=== PATIENT | male | born 1970 | race African-American/Black ===

== ENCOUNTER 2018-02-10 11:10 | Inpatient (IN) ==
[2018-02-10] MEDS ORDERED: LORazepam 2 MG/1 ML VIAL ONE (11:54)
[2018-02-10] MEDS ORDERED: LORazepam 2 MG/1 ML VIAL IV STA (11:58)
[2018-02-10] MEDS ORDERED: SODIUM CHLORIDE 0.9% 1,000 ML IV STA (12:25)
[2018-02-10] MEDS ORDERED: MIDAZOLAM 2 MG/2 ML VIAL ONE (12:35)
[2018-02-10] MEDS ORDERED: MIDAZOLAM 2 MG/2 ML VIAL IM STA (12:45)
[2018-02-10 13:14] LABS: Basophils % 0.5 % (0.0-0.8); Eosinophils # 0.1 10*3/uL (0.0-0.87); Hemoglobin 13.7 GM/DL (14.0-18.0); Immature Granulocytes % 0.3 %; Immature Granulocytes Absolute 0.02 #; Lymphocytes # 1.8 10*3/uL (1.4-4.0); Lymphocytes % 31.4 % (21.2-54.2); Mean Corpuscular HGB Conc 33.4 GM/DL (32-36); Mean Corpuscular Hemoglobin 33 PG (27-34); Mean Corpuscular Volume 97.2 FL (87-102); Monocytes # 0.8 10*3/uL (0.11-0.8); Monocytes % 13.3 % (1.7-12.7); Neutrophils # 3.1 10*3/uL (1.4-7.4); Neutrophils % 53.5 % (38.7-73.9); Platelet Count 49 T/CUMM (130-400); Red Blood Count 4.22 MC/CUMM (3.8-5.5); Red Cell Distribution Width 14.5 % (9.3-17.3); White Blood Count 5.7 T/CUMM (4-12)
[2018-02-10] MEDS ORDERED: ETOMIDATE 20 MG/10 ML VIAL IV STA (13:20)
[2018-02-10] MEDS ORDERED: SUCCINYLCHOLINE 200 MG/10 ML VIAL IV STA (13:20)
[2018-02-10] MEDS ORDERED: PROPOFOL 1,000 MG/100 ML BOTTLE IV ONE (13:24)
[2018-02-10] MEDS ORDERED: ETOMIDATE 20 MG/10 ML VIAL IV ONE (13:32)
[2018-02-10] MEDS ORDERED: ROCURONIUM 100 MG/10 ML VIAL IV ONE (13:32)
[2018-02-10 13:34] LABS: Albumin 3.6 G/DL (3.4-5.0); Bilirubin,Total 0.7 MG/DL (0.2-1.0); Calcium 8.5 MG/DL (8.5-10.1); Osmolality,Calculated 279.5 MOS/KG (273-304); Potassium 3.4 MMOL/L (3.5-5.1); Total Protein 7.3 G/DL (6.4-8.3)
[2018-02-10] MEDS ORDERED: VECURONIUM 10 MG VIAL IV ONE (13:48)
[2018-02-10] MEDS ORDERED: VECURONIUM 10 MG VIAL IV STA (13:55)
[2018-02-10 14:14] LABS: Apearance,Urine CLEAR (Clear); Bilirubin,Urine Negative (Negative); Blood, Urine Small mg/dL (Negative); Glucose,Urine (UA) >=500 mg/dL (Negative); Hyaline Casts,Urine 4 /LPF (0-3); Ketones,Urine 5 mg/dL (Negative); Mucus,Urine Occasional /LPF (Occasional); Nitrite,Urine Negative (Negative); Protein,Urine 100 MG/DL; RBC,Urine 3 /HPF (0-4); Urine Color Yellow (Yellow); Urine Specific Gravity 1.021 (1.001-1.035); WBC,Urine 1 /HPF (0-6)
[2018-02-10 14:20] LABS: Barbiturates Screen,Urine Negative (Negative); Benzodiazepines Screen,Urine Positive (Negative); Cannabinoid Screen,Urine Negative (Negative); Opiate Screen,Urine Negative (Negative); Phencyclidine Screen,Urine Negative (Negative)
[2018-02-10 14:34] LABS: ABG Base Excess 1.2 MMOL/L (-2.5-2.5); ABG HCO3 25.5 MMOL/L (20-26); ABG Oxygen Saturation 98.8 % (95-100); ABG PCO2 46.3 MM HG (35-48); ABG PH 7.373 (7.35-7.45); ABG TCO2 23.7 MMOL/L (23-27)
[2018-02-10] MEDS ORDERED: ALBUTEROL 2.5 MG/3 ML NEB RESP TX PRN (14:55)
[2018-02-10] MEDS ORDERED: ONDANSETRON 4 MG/2 ML VIAL IV PRN (14:55)
[2018-02-10] MEDS ORDERED: PANTOPRAZOLE 40 MG VIAL IV SCH (15:00)
[2018-02-10] MEDS ORDERED: SODIUM CHLORIDE 0.9% 1,000 ML IV SCH (15:00)
[2018-02-10] MEDS ORDERED: GLUCAGON 1 MG VIAL IM PRN (15:05)
[2018-02-10] MEDS ORDERED: DEXTROSE 50% 25 GM/50 ML VIAL IV PRN (15:05)
[2018-02-10] MEDS ORDERED: THIAMINE INJ 100 MG, FOLIC ACID INJ 1 MG, MULTIVITAMIN INJ 10 ML in SODIUM CHLORIDE 0.9... IV SCH (16:00)
[2018-02-10] MEDS: PROPOFOL 1,000 MG/100 ML BOTTLE IV SCH ×3 (16:14→21:49)
[2018-02-10] MEDS: ENOXAPARIN 40 MG/0.4 ML SYRINGE SUBCUT SCH (16:19)
[2018-02-10] MEDS ORDERED: MAGNESIUM SULF RIDER 4 GM in PREMIX 1 EACH IV PRN (16:26)
[2018-02-10] MEDS: INSULIN LISPRO 100 UNIT/ML SUBCUT SCH ×2 (17:00→21:48)
[2018-02-10] MEDS: SODIUM CHLORIDE 0.9% 1,000 ML IV SCH (17:39)
[2018-02-10] MEDS: chlordiazePOXIDE 25 MG CAPSULE PER TUBE SCH (21:48)
[2018-02-10] MEDS: BACLOFEN 10 MG TABLET PER TUBE SCH (21:48)
[2018-02-10] MEDS: MAGNESIUM SULF RIDER 2 GM in PREMIX 1 EACH IV PRN (21:50)
[2018-02-10] MEDS: POTASSIUM CHLORIDE RIDER 10 MEQ in PREMIX 1 EACH IV PRN (22:12)
[2018-02-11] MEDS: POTASSIUM CHLORIDE RIDER 10 MEQ in PREMIX 1 EACH IV PRN ×4 (00:15→09:25)
[2018-02-11] MEDS: PROPOFOL 1,000 MG/100 ML BOTTLE IV SCH ×8 (00:15→22:22)
[2018-02-11 03:48] LABS: ABG Base Excess 1.3 MMOL/L (-2.5-2.5); ABG HCO3 25.6 MMOL/L (20-26); ABG PCO2 43.1 MM HG (35-48); ABG PH 7.396 (7.35-7.45); ABG TCO2 23.1 MMOL/L (23-27); Pt O2 Delivery Device Ventilator
[2018-02-11 05:28] LABS: Basophils % 0.4 % (0.0-0.8); Eosinophils # 0.1 10*3/uL (0.0-0.87); Eosinophils % 1.2 % (0.00-10.9); Hematocrit 38.3 VOL% (42.0-52.0); Hemoglobin 12.8 GM/DL (14.0-18.0); Immature Granulocytes % 0.6 %; Immature Granulocytes Absolute 0.04 #; Lymphocytes % 14.3 % (21.2-54.2); Mean Corpuscular HGB Conc 33.4 GM/DL (32-36); Mean Corpuscular Hemoglobin 33 PG (27-34); Mean Corpuscular Volume 97.2 FL (87-102); Mean Platelet Volume 13.4 FL (9.6-12.0); Monocytes # 0.6 10*3/uL (0.11-0.8); Monocytes % 8.5 % (1.7-12.7); Neutrophils # 5.4 10*3/uL (1.4-7.4); Platelet Count 40 T/CUMM (130-400); Red Blood Count 3.94 MC/CUMM (3.8-5.5); Red Cell Distribution Width 14.8 % (9.3-17.3); White Blood Count 7.3 T/CUMM (4-12)
[2018-02-11 05:55] LABS: Albumin 3.2 G/DL (3.4-5.0); Bilirubin,Total 1.1 MG/DL (0.2-1.0); Calcium 7.7 MG/DL (8.5-10.1); Folate > 24.0 NG/ML (5.4-24.0); Potassium 3.2 MMOL/L (3.5-5.1); Thyroid Stimulating Hormone 0.498 uIU/ml (0.358-3.74); Total Protein 6.6 G/DL (6.4-8.3); Vitamin B12 999 PG/ML (211-911)
[2018-02-11 05:58] LABS: Band Neutrophils 2 % (0-10); Hypochromasia 1+; Lymphocytes 16 % (20-55); Platelet Estimate Decreased; Segmented Neutrophils 75 % (50-85); Total Cells Counted 100
[2018-02-11] MEDS: SODIUM CHLORIDE 0.9% 1,000 ML IV SCH ×3 (06:34→21:25)
[2018-02-11] MEDS: INSULIN LISPRO 100 UNIT/ML SUBCUT SCH ×3 (07:49→16:54)
[2018-02-11] MEDS: BACLOFEN 10 MG TABLET PER TUBE SCH ×3 (09:25→21:03)
[2018-02-11] MEDS: chlordiazePOXIDE 25 MG CAPSULE PER TUBE SCH ×4 (09:25→21:03)
[2018-02-11] MEDS: PANTOPRAZOLE 40 MG VIAL IV SCH ×2 (09:26→21:04)
[2018-02-11] MEDS: POTASSIUM CHLORIDE 20 MEQ/15 ML UDCUP PER TUBE SCH ×4 (10:40→22:09)
[2018-02-11] MEDS: ENOXAPARIN 40 MG/0.4 ML SYRINGE SUBCUT SCH (16:13)
[2018-02-12] MEDS: INSULIN LISPRO 100 UNIT/ML SUBCUT SCH ×5 (00:15→23:47)
[2018-02-12] MEDS: LORazepam 2 MG/1 ML VIAL IV PRN ×3 (01:16→23:42)
[2018-02-12] MEDS: PROPOFOL 1,000 MG/100 ML BOTTLE IV SCH ×9 (01:19→21:50)
[2018-02-12 04:21] LABS: ABG HCO3 22.8 MMOL/L (20-26); ABG Oxygen Saturation 97.9 % (95-100); ABG PCO2 40.3 MM HG (35-48); ABG PH 7.368 (7.35-7.45); ABG TCO2 20.4 MMOL/L (23-27); Allen Test Positive; Pt O2 Delivery Device Ventilator
[2018-02-12] MEDS: SODIUM CHLORIDE 0.9% 1,000 ML IV SCH ×2 (05:35→13:57)
[2018-02-12 06:29] LABS: Basophils % 0.3 % (0.0-0.8); Eosinophils # 0.1 10*3/uL (0.0-0.87); Eosinophils % 1.6 % (0.00-10.9); Hematocrit 39.2 VOL% (42.0-52.0); Hemoglobin 12.6 GM/DL (14.0-18.0); Immature Granulocytes % 0.3 %; Immature Granulocytes Absolute 0.02 #; Lymphocytes # 1.1 10*3/uL (1.4-4.0); Lymphocytes % 17.1 % (21.2-54.2); Mean Corpuscular HGB Conc 32.1 GM/DL (32-36); Mean Corpuscular Hemoglobin 33 PG (27-34); Mean Platelet Volume 13.6 FL (9.6-12.0); Monocytes # 0.6 10*3/uL (0.11-0.8); Monocytes % 8.9 % (1.7-12.7); Neutrophils # 4.5 10*3/uL (1.4-7.4); Neutrophils % 71.8 % (38.7-73.9); Platelet Count 40 T/CUMM (130-400); Red Blood Count 3.88 MC/CUMM (3.8-5.5); White Blood Count 6.3 T/CUMM (4-12)
[2018-02-12 06:39] LABS: PT Patient Result 10.6 SECS
[2018-02-12 06:41] LABS: Osmolality,Calculated 287.6 MOS/KG (273-304); Potassium 3.5 MMOL/L (3.5-5.1)
[2018-02-12 07:14] LABS: Band Neutrophils 1 % (0-10); Eosinophils 3 % (0-10); Lymphocytes 28 % (20-55); Macrocytosis 3+; Platelet Estimate Decreased; Segmented Neutrophils 66 % (50-85); Total Cells Counted 100
[2018-02-12] MEDS: BACLOFEN 10 MG TABLET PER TUBE SCH ×3 (10:02→21:32)
[2018-02-12] MEDS: PANTOPRAZOLE 40 MG VIAL IV SCH (10:02)
[2018-02-12] MEDS: chlordiazePOXIDE 25 MG CAPSULE PER TUBE SCH ×4 (10:02→21:32)
[2018-02-12] MEDS: POTASSIUM CHLORIDE RIDER 10 MEQ in PREMIX 1 EACH IV PRN ×3 (10:53→13:01)
[2018-02-13] MEDS: PROPOFOL 1,000 MG/100 ML BOTTLE IV SCH ×9 (00:26→21:25)
[2018-02-13 04:40] LABS: ABG Base Excess -1.6 MMOL/L (-2.5-2.5); ABG Oxygen Saturation 97.8 % (95-100); ABG PCO2 38.3 MM HG (35-48); ABG PH 7.387 (7.35-7.45); ABG PO2 99.9 MM HG (80-95)
[2018-02-13] MEDS: INSULIN LISPRO 100 UNIT/ML SUBCUT SCH ×3 (05:49→17:19)
[2018-02-13] MEDS: SODIUM CHLORIDE 0.9% 1,000 ML IV SCH ×2 (06:14→23:00)
[2018-02-13 06:28] LABS: Basophils % 0.3 % (0.0-0.8); Eosinophils % 0.2 % (0.00-10.9); Hematocrit 42.8 VOL% (42.0-52.0); Hemoglobin 13.8 GM/DL (14.0-18.0); Immature Granulocytes % 0.6 %; Immature Granulocytes Absolute 0.07 #; Lymphocytes # 1.4 10*3/uL (1.4-4.0); Lymphocytes % 12.7 % (21.2-54.2); Mean Corpuscular HGB Conc 32.2 GM/DL (32-36); Mean Corpuscular Hemoglobin 33 PG (27-34); Mean Corpuscular Volume 101.7 FL (87-102); Mean Platelet Volume 13.5 FL (9.6-12.0); Monocytes # 1.6 10*3/uL (0.11-0.8); Monocytes % 14.9 % (1.7-12.7); Neutrophils # 7.7 10*3/uL (1.4-7.4); Neutrophils % 71.3 % (38.7-73.9); Platelet Count 54 T/CUMM (130-400); Red Blood Count 4.21 MC/CUMM (3.8-5.5); Red Cell Distribution Width 14.6 % (9.3-17.3); White Blood Count 10.8 T/CUMM (4-12)
[2018-02-13 07:14] LABS: Platelet Estimate Decreased
[2018-02-13 07:15] LABS: Anisocytosis Slight; Macrocytosis 2+
[2018-02-13 07:16] LABS: Giant Platelets Few
[2018-02-13 08:23] LABS: Calcium 8.3 MG/DL (8.5-10.1); Potassium 4.2 MMOL/L (3.5-5.1)
[2018-02-13] MEDS: PANTOPRAZOLE 40 MG VIAL IV SCH (08:35)
[2018-02-13] MEDS: FONDAPARINUX 2.5 MG/0.5 ML SYRINGE SUBCUT SCH (08:35)
[2018-02-13] MEDS: BACLOFEN 10 MG TABLET PER TUBE SCH ×3 (08:35→20:21)
[2018-02-13] MEDS: chlordiazePOXIDE 25 MG CAPSULE PER TUBE SCH ×4 (08:35→20:21)
[2018-02-13] MEDS: LORazepam 2 MG/1 ML VIAL IV PRN (20:30)
[2018-02-14] MEDS: INSULIN LISPRO 100 UNIT/ML SUBCUT SCH ×4 (00:07→17:41)
[2018-02-14] MEDS: PROPOFOL 1,000 MG/100 ML BOTTLE IV SCH ×5 (04:09→19:49)
[2018-02-14 04:41] LABS: ABG Base Excess 0.9 MMOL/L (-2.5-2.5); ABG HCO3 25.4 MMOL/L (20-26); ABG Oxygen Saturation 96.2 % (95-100); ABG PCO2 40.3 MM HG (35-48); ABG PH 7.418 (7.35-7.45); ABG PO2 86.7 MM HG (80-95); ABG TCO2 26.7 MMOL/L (23-27); Pt O2 Delivery Device Ventilator
[2018-02-14 05:11] LABS: Basophils % 0.6 % (0.0-0.8); Eosinophils % 0.7 % (0.00-10.9); Hematocrit 38.6 VOL% (42.0-52.0); Hemoglobin 12.6 GM/DL (14.0-18.0); Immature Granulocytes % 0.2 %; Immature Granulocytes Absolute 0.01 #; Lymphocytes # 1.1 10*3/uL (1.4-4.0); Lymphocytes % 20.1 % (21.2-54.2); Mean Corpuscular HGB Conc 32.6 GM/DL (32-36); Mean Corpuscular Hemoglobin 33 PG (27-34); Mean Corpuscular Volume 99.5 FL (87-102); Mean Platelet Volume 13.3 FL (9.6-12.0); Monocytes # 1.3 10*3/uL (0.11-0.8); Monocytes % 24.6 % (1.7-12.7); Neutrophils # 2.9 10*3/uL (1.4-7.4); Neutrophils % 53.8 % (38.7-73.9); Platelet Count 69 T/CUMM (130-400); Red Blood Count 3.88 MC/CUMM (3.8-5.5); Red Cell Distribution Width 14.3 % (9.3-17.3); White Blood Count 5.4 T/CUMM (4-12)
[2018-02-14 05:23] LABS: Calcium 7.9 MG/DL (8.5-10.1); Potassium 3.8 MMOL/L (3.5-5.1)
[2018-02-14 05:56] LABS: Band Neutrophils 8 % (0-10); Eosinophils 2 % (0-10); Hypochromasia 1+; Lymphocytes 22 % (20-55); Platelet Estimate Decreased; Segmented Neutrophils 40 % (50-85); Total Cells Counted 100
[2018-02-14 05:57] LABS: Macrocytosis Slight
[2018-02-14] MEDS: POTASSIUM CHLORIDE RIDER 10 MEQ in PREMIX 1 EACH IV PRN ×2 (06:07→07:11)
[2018-02-14] MEDS: BACLOFEN 10 MG TABLET PER TUBE SCH ×3 (08:58→21:37)
[2018-02-14] MEDS: FONDAPARINUX 2.5 MG/0.5 ML SYRINGE SUBCUT SCH (08:58)
[2018-02-14] MEDS: chlordiazePOXIDE 25 MG CAPSULE PER TUBE SCH ×4 (08:58→21:37)
[2018-02-14] MEDS: PANTOPRAZOLE 40 MG VIAL IV SCH (08:58)
[2018-02-14] MEDS ORDERED: cefTRIAXone 1,000 MG VIAL IM SCH (09:30)
[2018-02-14] MEDS: cefTRIAXone 1,000 MG in SYRINGE 1 EACH IV SCH (10:29)
[2018-02-14] MEDS: SODIUM CHLORIDE 0.9% 1,000 ML IV SCH (16:03)
[2018-02-15] MEDS: INSULIN LISPRO 100 UNIT/ML SUBCUT SCH ×5 (00:27→23:50)
[2018-02-15] MEDS: PROPOFOL 1,000 MG/100 ML BOTTLE IV SCH ×5 (00:35→20:40)
[2018-02-15 03:49] LABS: ABG Base Excess 2.2 MMOL/L (-2.5-2.5); ABG HCO3 26.4 MMOL/L (20-26); ABG Oxygen Saturation 98.9 % (95-100); ABG PCO2 40.7 MM HG (35-48); ABG PH 7.426 (7.35-7.45); ABG TCO2 23.5 MMOL/L (23-27); Pt O2 Delivery Device Ventilator
[2018-02-15 05:58] LABS: Basophils % 0.5 % (0.0-0.8); Eosinophils # 0.1 10*3/uL (0.0-0.87); Eosinophils % 2.7 % (0.00-10.9); Hematocrit 37.9 VOL% (42.0-52.0); Hemoglobin 12.1 GM/DL (14.0-18.0); Immature Granulocytes % 0.9 %; Immature Granulocytes Absolute 0.04 #; Lymphocytes # 1.1 10*3/uL (1.4-4.0); Lymphocytes % 23.9 % (21.2-54.2); Mean Corpuscular HGB Conc 31.9 GM/DL (32-36); Mean Corpuscular Hemoglobin 32 PG (27-34); Mean Corpuscular Volume 100.5 FL (87-102); Monocytes # 1.2 10*3/uL (0.11-0.8); Platelet Count 95 T/CUMM (130-400); Red Blood Count 3.77 MC/CUMM (3.8-5.5); Red Cell Distribution Width 14.1 % (9.3-17.3); White Blood Count 4.4 T/CUMM (4-12)
[2018-02-15 06:20] LABS: Band Neutrophils 4 % (0-10); Eosinophils 2 % (0-10); Hypochromasia 1+; Lymphocytes 33 % (20-55); Platelet Estimate Decreased; Segmented Neutrophils 40 % (50-85); Total Cells Counted 100
[2018-02-15 06:21] LABS: Macrocytosis Slight
[2018-02-15 06:29] LABS: Calcium 8.4 MG/DL (8.5-10.1); Osmolality,Calculated 289.8 MOS/KG (273-304); Potassium 3.6 MMOL/L (3.5-5.1)
[2018-02-15] MEDS: POTASSIUM CHLORIDE RIDER 10 MEQ in PREMIX 1 EACH IV PRN ×2 (06:41→07:42)
[2018-02-15] MEDS ORDERED: MAGNESIUM SULF RIDER 2 GM in PREMIX 1 EACH IV ONE (08:53)
[2018-02-15] MEDS: chlordiazePOXIDE 25 MG CAPSULE PER TUBE SCH ×3 (09:41→17:15)
[2018-02-15] MEDS: PANTOPRAZOLE 40 MG VIAL IV SCH (09:41)
[2018-02-15] MEDS: cefTRIAXone 1,000 MG in SYRINGE 1 EACH IV SCH (09:41)
[2018-02-15] MEDS: BACLOFEN 10 MG TABLET PER TUBE SCH ×3 (09:41→20:49)
[2018-02-15] MEDS: FONDAPARINUX 2.5 MG/0.5 ML SYRINGE SUBCUT SCH (09:41)
[2018-02-15] MEDS: SODIUM CHLORIDE 0.9% 1,000 ML IV SCH (10:06)
[2018-02-16] MEDS: SODIUM CHLORIDE 0.9% 1,000 ML IV SCH (03:00)
[2018-02-16] MEDS: PROPOFOL 1,000 MG/100 ML BOTTLE IV SCH ×4 (03:15→19:32)
[2018-02-16 03:25] LABS: ABG Base Excess 3.1 MMOL/L (-2.5-2.5); ABG HCO3 27.2 MMOL/L (20-26); ABG PCO2 42.9 MM HG (35-48); ABG PH 7.422 (7.35-7.45); ABG TCO2 24.5 MMOL/L (23-27); Allen Test Positive; Pt O2 Delivery Device Ventilator
[2018-02-16] MEDS: chlordiazePOXIDE 25 MG CAPSULE PER TUBE SCH ×2 (04:14→15:45)
[2018-02-16 04:37] LABS: Basophils % 0.8 % (0.0-0.8); Eosinophils # 0.1 10*3/uL (0.0-0.87); Eosinophils % 2.8 % (0.00-10.9); Hematocrit 38.7 VOL% (42.0-52.0); Hemoglobin 12.5 GM/DL (14.0-18.0); Immature Granulocytes % 1.6 %; Immature Granulocytes Absolute 0.08 #; Lymphocytes # 1.1 10*3/uL (1.4-4.0); Lymphocytes % 21.9 % (21.2-54.2); Mean Corpuscular HGB Conc 32.3 GM/DL (32-36); Mean Corpuscular Hemoglobin 32 PG (27-34); Mean Corpuscular Volume 99.7 FL (87-102); Mean Platelet Volume 12.8 FL (9.6-12.0); Monocytes # 1.2 10*3/uL (0.11-0.8); Monocytes % 24.1 % (1.7-12.7); Neutrophils # 2.5 10*3/uL (1.4-7.4); Neutrophils % 48.8 % (38.7-73.9); Platelet Count 123 T/CUMM (130-400); Red Blood Count 3.88 MC/CUMM (3.8-5.5); Red Cell Distribution Width 13.9 % (9.3-17.3)
[2018-02-16 04:53] LABS: Osmolality,Calculated 290.8 MOS/KG (273-304); Potassium 3.8 MMOL/L (3.5-5.1)
[2018-02-16 05:14] LABS: Eosinophils 2 % (0-10); Hypochromasia 1+; Lymphocytes 26 % (20-55); Platelet Estimate Decreased; Segmented Neutrophils 53 % (50-85); Total Cells Counted 100
[2018-02-16 05:15] LABS: Macrocytosis Slight
[2018-02-16] MEDS: POTASSIUM CHLORIDE RIDER 10 MEQ in PREMIX 1 EACH IV PRN ×2 (06:30→07:45)
[2018-02-16] MEDS: INSULIN LISPRO 100 UNIT/ML SUBCUT SCH ×3 (06:30→18:28)
[2018-02-16] MEDS ORDERED: FUROSEMIDE 40 MG/4 ML VIAL IV ONE (07:37)
[2018-02-16] MEDS: PANTOPRAZOLE 40 MG VIAL IV SCH (09:19)
[2018-02-16] MEDS: cefTRIAXone 1,000 MG in SYRINGE 1 EACH IV SCH (09:19)
[2018-02-16] MEDS: BACLOFEN 10 MG TABLET PER TUBE SCH ×3 (09:19→21:02)
[2018-02-16] MEDS: FONDAPARINUX 2.5 MG/0.5 ML SYRINGE SUBCUT SCH (09:21)
[2018-02-16] MEDS: LORazepam 2 MG/1 ML VIAL IV PRN (21:02)
[2018-02-17] MEDS: INSULIN LISPRO 100 UNIT/ML SUBCUT SCH ×4 (00:37→18:47)
[2018-02-17] MEDS: LORazepam 2 MG/1 ML VIAL IV PRN ×3 (00:38→06:25)
[2018-02-17] MEDS: PROPOFOL 1,000 MG/100 ML BOTTLE IV SCH (03:33)
[2018-02-17 04:37] LABS: ABG Base Excess 5.4 MMOL/L (-2.5-2.5); ABG HCO3 29.3 MMOL/L (20-26); ABG Oxygen Saturation 97.4 % (95-100); ABG PCO2 42.2 MM HG (35-48); ABG PH 7.457 (7.35-7.45); ABG PO2 90.5 MM HG (80-95); Allen Test Positive; Pt O2 Delivery Device Ventilator
[2018-02-17 05:08] LABS: Basophils % 0.7 % (0.0-0.8); Eosinophils # 0.1 10*3/uL (0.0-0.87); Eosinophils % 2.1 % (0.00-10.9); Hematocrit 39.1 VOL% (42.0-52.0); Hemoglobin 12.8 GM/DL (14.0-18.0); Immature Granulocytes % 2.3 %; Immature Granulocytes Absolute 0.14 #; Lymphocytes # 1.1 10*3/uL (1.4-4.0); Lymphocytes % 17.9 % (21.2-54.2); Mean Corpuscular HGB Conc 32.7 GM/DL (32-36); Mean Corpuscular Hemoglobin 32 PG (27-34); Mean Corpuscular Volume 98.2 FL (87-102); Mean Platelet Volume 13.4 FL (9.6-12.0); Monocytes # 1.3 10*3/uL (0.11-0.8); Monocytes % 21.5 % (1.7-12.7); Neutrophils # 3.4 10*3/uL (1.4-7.4); Neutrophils % 55.5 % (38.7-73.9); Platelet Count 152 T/CUMM (130-400); Red Blood Count 3.98 MC/CUMM (3.8-5.5); Red Cell Distribution Width 13.9 % (9.3-17.3); White Blood Count 6.1 T/CUMM (4-12)
[2018-02-17 05:33] LABS: Calcium 9.1 MG/DL (8.5-10.1); Osmolality,Calculated 289.1 MOS/KG (273-304); Potassium 3.5 MMOL/L (3.5-5.1)
[2018-02-17 05:35] LABS: Lymphocytes 16 % (20-55); Platelet Estimate Normal; Segmented Neutrophils 59 % (50-85); Total Cells Counted 100
[2018-02-17] MEDS: POTASSIUM CHLORIDE RIDER 10 MEQ in PREMIX 1 EACH IV PRN ×3 (06:25→09:33)
[2018-02-17] MEDS: MAGNESIUM SULF RIDER 2 GM in PREMIX 1 EACH IV PRN (06:26)
[2018-02-17] MEDS: BACLOFEN 10 MG TABLET PER TUBE SCH ×3 (08:38→21:00)
[2018-02-17] MEDS: FONDAPARINUX 2.5 MG/0.5 ML SYRINGE SUBCUT SCH (08:38)
[2018-02-17] MEDS: cefTRIAXone 1,000 MG in SYRINGE 1 EACH IV SCH (08:38)
[2018-02-17] MEDS: PANTOPRAZOLE 40 MG VIAL IV SCH (08:39)
[2018-02-17] MEDS ORDERED: chlordiazePOXIDE 25 MG CAPSULE PO PRN (11:29)
[2018-02-17] MEDS: ALBUTEROL/IPRATROPIUM 3 ML NEB RESP TX SCH ×2 (12:44→19:55)
[2018-02-18] MEDS: ALBUTEROL/IPRATROPIUM 3 ML NEB RESP TX SCH ×4 (00:24→19:47)
[2018-02-18] MEDS: INSULIN LISPRO 100 UNIT/ML SUBCUT SCH ×4 (01:38→17:19)
[2018-02-18 03:34] LABS: Alanine Aminotransferase 46 U/L (16-61); Albumin 2.5 G/DL (3.4-5.0); Alkaline Phosphatase 84 U/L (45-117); Aspartate Amino Transferase 35 U/L (0-37); Bilirubin,Total < 0.39 MG/DL (0.2-1.0); Blood Urea Nitrogen 8 MG/DL (7-18); Calcium 9.4 MG/DL (8.5-10.1); Glucose 164 MG/DL (74-106); Osmolality,Calculated 284.1 MOS/KG (273-304); Potassium 3.6 MMOL/L (3.5-5.1); Sodium 142 MMOL/L (136-145); Total Protein 7.1 G/DL (6.4-8.3)
[2018-02-18] MEDS: FONDAPARINUX 2.5 MG/0.5 ML SYRINGE SUBCUT SCH (09:26)
[2018-02-18] MEDS: cefTRIAXone 1,000 MG in SYRINGE 1 EACH IV SCH (09:26)
[2018-02-18] MEDS: PANTOPRAZOLE 40 MG VIAL IV SCH (09:26)
[2018-02-18] MEDS: BACLOFEN 10 MG TABLET PER TUBE SCH ×3 (09:26→20:25)
[2018-02-18] MEDS: POTASSIUM CHLORIDE RIDER 10 MEQ in PREMIX 1 EACH IV PRN ×2 (20:25→23:02)
[2018-02-18] MEDS: MAGNESIUM SULF RIDER 2 GM in PREMIX 1 EACH IV PRN (20:25)
[2018-02-19] MEDS: ALBUTEROL/IPRATROPIUM 3 ML NEB RESP TX SCH ×4 (01:11→19:23)
[2018-02-19] MEDS: INSULIN LISPRO 100 UNIT/ML SUBCUT SCH ×5 (01:18→21:25)
[2018-02-19 03:53] LABS: Basophils # 0.1 10*3/uL (0.0-0.2); Basophils % 0.7 % (0.0-0.8); Eosinophils # 0.1 10*3/uL (0.0-0.87); Eosinophils % 1.7 % (0.00-10.9); Hematocrit 38.7 VOL% (42.0-52.0); Hemoglobin 12.8 GM/DL (14.0-18.0); Immature Granulocytes % 1.9 %; Immature Granulocytes Absolute 0.16 #; Lymphocytes # 1.9 10*3/uL (1.4-4.0); Lymphocytes % 23.3 % (21.2-54.2); Mean Corpuscular HGB Conc 33.1 GM/DL (32-36); Mean Corpuscular Hemoglobin 33 PG (27-34); Mean Corpuscular Volume 98.5 FL (87-102); Mean Platelet Volume 11.9 FL (9.6-12.0); Monocytes # 1.2 10*3/uL (0.11-0.8); Monocytes % 14.9 % (1.7-12.7); Neutrophils # 4.8 10*3/uL (1.4-7.4); Neutrophils % 57.5 % (38.7-73.9); Platelet Count 198 T/CUMM (130-400); Red Blood Count 3.93 MC/CUMM (3.8-5.5); Red Cell Distribution Width 13.2 % (9.3-17.3); White Blood Count 8.3 T/CUMM (4-12)
[2018-02-19 04:28] LABS: Calcium 8.5 MG/DL (8.5-10.1); Potassium 3.4 MMOL/L (3.5-5.1)
[2018-02-19 05:20] LABS: Hypochromasia 1+; Platelet Estimate Adequate
[2018-02-19] MEDS: POTASSIUM CHLORIDE RIDER 10 MEQ in PREMIX 1 EACH IV PRN ×3 (06:25→08:22)
[2018-02-19] MEDS: MAGNESIUM SULF RIDER 2 GM in PREMIX 1 EACH IV PRN (06:25)
[2018-02-19] MEDS: PANTOPRAZOLE 40 MG VIAL IV SCH (08:21)
[2018-02-19] MEDS: FONDAPARINUX 2.5 MG/0.5 ML SYRINGE SUBCUT SCH (08:21)
[2018-02-19] MEDS: BACLOFEN 10 MG TABLET PER TUBE SCH (08:21)
[2018-02-19] MEDS: cefTRIAXone 1,000 MG in SYRINGE 1 EACH IV SCH (08:29)
[2018-02-19] MEDS ORDERED: traZODone 50 MG TABLET PO PRN (12:50)
[2018-02-19] MEDS: QUEtiapine 25 MG TABLET PO SCH (21:26)
[2018-02-20] MEDS: ALBUTEROL/IPRATROPIUM 3 ML NEB RESP TX SCH ×4 (01:08→19:35)
[2018-02-20 05:32] LABS: Calcium 9.1 MG/DL (8.5-10.1); Osmolality,Calculated 286.7 MOS/KG (273-304); Potassium 3.5 MMOL/L (3.5-5.1)
[2018-02-20] MEDS: INSULIN LISPRO 100 UNIT/ML SUBCUT SCH ×4 (07:29→22:04)
[2018-02-20] MEDS: FONDAPARINUX 2.5 MG/0.5 ML SYRINGE SUBCUT SCH (08:45)
[2018-02-20] MEDS: QUEtiapine 25 MG TABLET PO SCH (08:46)
[2018-02-20] MEDS: PANTOPRAZOLE 40 MG VIAL IV SCH (08:46)
[2018-02-20] MEDS: THIAMINE 100 MG TABLET PO SCH (08:46)
[2018-02-20] MEDS: cefTRIAXone 1,000 MG in SYRINGE 1 EACH IV SCH (08:46)
[2018-02-20] MEDS: MULTIVITAMIN (CENTRUM) TABLET PO SCH (08:46)
[2018-02-20] MEDS ORDERED: POTASSIUM CHLORIDE 20 MEQ TABLET PO ONE (09:55)
[2018-02-20] MEDS: chlordiazePOXIDE 10 MG CAPSULE PO SCH ×2 (10:30→15:44)
[2018-02-21] MEDS: ALBUTEROL/IPRATROPIUM 3 ML NEB RESP TX SCH ×4 (00:13→18:54)
[2018-02-21] MEDS: QUEtiapine 25 MG TABLET PO SCH ×3 (00:22→21:00)
[2018-02-21] MEDS: chlordiazePOXIDE 10 MG CAPSULE PO SCH ×4 (00:22→21:00)
[2018-02-21 05:11] LABS: Calcium 8.7 MG/DL (8.5-10.1); Osmolality,Calculated 288.8 MOS/KG (273-304); Potassium 3.6 MMOL/L (3.5-5.1)
[2018-02-21] MEDS: THIAMINE 100 MG TABLET PO SCH (11:07)
[2018-02-21] MEDS: MULTIVITAMIN (CENTRUM) TABLET PO SCH (11:07)
[2018-02-21] MEDS: FONDAPARINUX 2.5 MG/0.5 ML SYRINGE SUBCUT SCH (11:07)
[2018-02-21] MEDS: cefTRIAXone 1,000 MG in SYRINGE 1 EACH IV SCH (11:13)
[2018-02-21] MEDS: PANTOPRAZOLE 40 MG VIAL IV SCH (11:17)
[2018-02-21] MEDS: INSULIN LISPRO 100 UNIT/ML SUBCUT SCH ×3 (12:03→18:04)
[2018-02-21] MEDS: MAGNESIUM OXIDE 400 MG TABLET PO SCH ×2 (15:26→21:00)
[2018-02-22] MEDS: ALBUTEROL/IPRATROPIUM 3 ML NEB RESP TX SCH ×2 (00:05→07:32)
[2018-02-22] MEDS: INSULIN LISPRO 100 UNIT/ML SUBCUT SCH ×2 (00:12→06:15)
[2018-02-22 07:36] VITALS: BP 128/78
[2018-02-22] MEDS: MULTIVITAMIN (CENTRUM) TABLET PO SCH (08:55)
[2018-02-22] MEDS: MAGNESIUM OXIDE 400 MG TABLET PO SCH (08:55)
[2018-02-22] MEDS: THIAMINE 100 MG TABLET PO SCH (08:56)
[2018-02-22] MEDS: QUEtiapine 25 MG TABLET PO SCH (08:56)
[2018-02-22] MEDS: chlordiazePOXIDE 10 MG CAPSULE PO SCH (08:56)
[2018-02-22] MEDS: cefTRIAXone 1,000 MG in SYRINGE 1 EACH IV SCH (08:57)
[2018-02-22] MEDS: FONDAPARINUX 2.5 MG/0.5 ML SYRINGE SUBCUT SCH (08:57)
[2018-02-22] MEDS: PANTOPRAZOLE 40 MG VIAL IV SCH (08:57)
[2018-02-22] MEDS ORDERED: AMOXICILLIN/CLAV 875 MG TABLET PO SCH (21:00)
== END 2018-02-22 10:53 | disposition home or self-care (01) | DRG 896 ==
LOC: EDUNIT# → EDBD → N.ED 11:10 → N.EDINP 14:17 → SUATTDRO 14:17 → N.CC 15:44 → N.2E 02-19 12:50
PROVIDERS: ADMIT Internal Medicine; ATTEND Internal Medicine